=== PATIENT | female | born 1995 | race Caucasian/White ===

== ENCOUNTER 2016-07-21 18:47 | Outpatient (CLI) | payer MEDICAID ==
[2016-07-21 19:56] LABS: APPEARANCE,URINE CLEAR; BILIRUBIN,URINE NEGATIVE (NEGATIVE); GLUCOSE, URINE NEGATIVE (NEGATIVE); KETONES,URINE NEGATIVE (NEGATIVE); LEUKOCYTE ESTERASE,URINE NEGATIVE (NEGATIVE); NITRITE,URINE NEGATIVE (NEGATIVE); PROTEIN,URINE NEGATIVE (NEGATIVE); URINE SPECIFIC GRAVITY 1.006; UROBILINOGEN,URINE NEGATIVE mg/dL (<2.0)
[2016-07-21 19:56] LABS: AMNISURE (ROM) NEGATIVE (NEGATIVE)
[2016-07-21 20:09] LABS: URINE BARBITURATES SCREEN NEGATIVE; URINE METHADONE SCREEN NEGATIVE; URINE OPIATES LOW NEGATIVE; URINE PHENCYCLIDINE SCREEN NEGATIVE
--- NOTE | 2016-07-21 20:47 | Non Stress Test Report ---
Non Stress Test Datetime Report Generated by CPN: 07/21/2016 20:47 DEMOGRAPHIC EGA NST: 32.4 INDICATION Indication for Study: Ordered by Provider MONITORING Monitor Explained: Monitor Explained; Test Explained; Patient Verbalized Understanding Time on Monitor: 07/21/2016 19:19 Time off Monitor: 07/21/2016 20:16 NST Duration: 57 NST INTERVENTIONS NST Interventions: PO Hydration Physician Notified NST: Dr Neilsen BABY A: [id number] BABY A Movement : Present Contraction Frequency : 5-10 FHR Baseline : 125 Accelerations : Prolonged Decelerations : None Variability : Moderate 6-25bpm NST Review: Meets Criteria for Reactive NST NST Review and Verified By : ROBERT ROSA Results: Reactive NST REPORT Report Trigger: Send Report
== END 2016-07-21 20:28 | disposition home or self-care (01) ==
LOC: LC 18:47
PROVIDERS: ATTEND Specialist
DX: Z34.83 Encounter for supervision of other normal pregnancy, third trimester (principal); Z3A.32 32 weeks gestation of pregnancy
CPT/HCPCS: 59025; 80307; 81001; 84112

== ENCOUNTER 2016-07-30 23:50 | Outpatient (CLI) | payer MEDICAID ==
[2016-07-31 00:30] LABS: APPEARANCE,URINE CLEAR; BILIRUBIN,URINE NEGATIVE (NEGATIVE); GLUCOSE, URINE NEGATIVE (NEGATIVE); KETONES,URINE NEGATIVE (NEGATIVE); LEUKOCYTE ESTERASE,URINE NEGATIVE (NEGATIVE); NITRITE,URINE NEGATIVE (NEGATIVE); PROTEIN,URINE NEGATIVE (NEGATIVE); URINE SPECIFIC GRAVITY 1.004; UROBILINOGEN,URINE NEGATIVE mg/dL (<2.0)
[2016-07-31 00:35] LABS: AMNISURE (ROM) NEGATIVE (NEGATIVE)
--- NOTE | 2016-07-31 01:05 | Non Stress Test Report ---
Non Stress Test Datetime Report Generated by CPN: 07/31/2016 01:05 DEMOGRAPHIC Test Number: 1 EGA NST: 34.0 INDICATION Indication for Study: Ordered by Provider MONITORING Monitor Explained: Monitor Explained; Test Explained; Patient Verbalized Understanding Time on Monitor: 07/31/2016 00:11 Time off Monitor: 07/31/2016 00:53 NST Duration: 42 NST INTERVENTIONS NST Interventions: PO Hydration Physician Notified NST: Herron BABY A: [id number] BABY A Movement : Present Contraction Frequency : 1-6 FHR Baseline : 130 Accelerations : 15X15 Decelerations : None Variability : Moderate 6-25bpm NST Review: Meets Criteria for Reactive NST NST Review and Verified By : ROBERT Hewitt Results: Reactive NST REPORT Report Trigger: Send Report
[2016-07-31 01:19] LABS: URINE BARBITURATES SCREEN NEGATIVE; URINE METHADONE SCREEN NEGATIVE; URINE OPIATES LOW NEGATIVE; URINE PHENCYCLIDINE SCREEN NEGATIVE
== END 2016-07-31 01:04 | disposition home or self-care (01) ==
LOC: LC 23:50
PROVIDERS: ATTEND Obstetrics & Gynecology
PROC: 4A1HXCZ Monitoring of Products of Conception, Cardiac Rate, External Approach (ICD-10-PCS; principal; 2016-07-30)
DX: O47.03 False labor before 37 completed weeks of gestation, third trimester (principal); Z3A.34 34 weeks gestation of pregnancy
CPT/HCPCS: 59025; 80307; 81001; 84112

== ENCOUNTER 2016-08-16 19:23 | Outpatient (CLI) | payer MEDICAID ==
[2016-08-16 20:06] LABS: APPEARANCE,URINE SLIGHTLY-CLOUDY; BILIRUBIN,URINE NEGATIVE (NEGATIVE); GLUCOSE, URINE NEGATIVE (NEGATIVE); KETONES,URINE NEGATIVE (NEGATIVE); LEUKOCYTE ESTERASE,URINE MODERATE (NEGATIVE); NITRITE,URINE NEGATIVE (NEGATIVE); PROTEIN,URINE NEGATIVE (NEGATIVE); URINE SPECIFIC GRAVITY 1.006; UROBILINOGEN,URINE NEGATIVE mg/dL (<2.0)
[2016-08-16 20:37] LABS: URINE BARBITURATES SCREEN NEGATIVE; URINE METHADONE SCREEN NEGATIVE; URINE OPIATES LOW NEGATIVE; URINE PHENCYCLIDINE SCREEN NEGATIVE
[2016-08-16] MEDS ORDERED: ACETAMINOPHEN 325 MG TABLET PO ONE (21:32)
[2016-08-16] MEDS ORDERED: ACETAMINOPHEN 325 MG TABLET ONE (21:36)
--- NOTE | 2016-08-16 22:01 | Non Stress Test Report ---
Non Stress Test Datetime Report Generated by CPN: 08/16/2016 22:01 DEMOGRAPHIC EGA NST: 36.2 INDICATION Indication for Study: Ordered by Provider Indication for Study (NST) Other: labor check URINE RESULTS Urine Protein, NST: Negative Urine Ketones - NST: Negative Urine Glucose - NST: Negative Urine Blood - NST: Negative MONITORING Monitor Explained: Monitor Explained; Test Explained; Patient Verbalized Understanding Time on Monitor: 08/16/2016 19:51 Time off Monitor: 08/16/2016 20:20 NST Duration: 29 NST INTERVENTIONS NST Interventions: PO Hydration Physician Notified NST: Dr. Dsouza BABY A: [id number] BABY A Movement : Present FHR Baseline : 130 Accelerations : 15X15 Decelerations : None Variability : Moderate 6-25bpm NST Review: Meets Criteria for Reactive NST NST Review and Verified By : B. Ring RN NST Results: Reactive NST REPORT Report Trigger: Send Report
--- NOTE | 2016-08-17 10:48 | EKG REPORT ---
SEVERITY:- NORMAL ECG - SINUS RHYTHM : Confirmed by: Matthew Moon 17-Aug-2016 10:47:12
== END 2016-08-16 22:03 | disposition home or self-care (01) ==
LOC: LC 19:23
PROVIDERS: ATTEND Obstetrics & Gynecology
PROC: 4A1HXCZ Monitoring of Products of Conception, Cardiac Rate, External Approach (ICD-10-PCS; principal; 2016-08-16)
DX: O47.03 False labor before 37 completed weeks of gestation, third trimester (principal); Z3A.36 36 weeks gestation of pregnancy
CPT/HCPCS: 59025; 94760; 81001; 80307; 93005; 93010; J3490

== ENCOUNTER 2016-09-01 17:55 | Inpatient (IN) | payer MEDICAID ==
[2016-09-01] MEDS ORDERED: CEFAZOLIN 2 GM/D5W RTU 2 GM/50 ML RTUPB IV ONE (19:16)
[2016-09-01] MEDS ORDERED: CEFAZOLIN 2 GM/D5W RTU 50 ML IV PRN (19:23)
[2016-09-01] MEDS ORDERED: RINGERS SOLUTION,LACTATED 1,000 ML IV PRN (19:27)
[2016-09-01] MEDS ORDERED: ONDANSETRON HCL INJ/PF 4 MG/2 ML SDV IV SCH (19:30)
[2016-09-01] MEDS ORDERED: ZOLPIDEM TARTRATE 5 MG TABLET PO PRN (19:30)
[2016-09-01 19:43] LABS: URINE BARBITURATES SCREEN NEGATIVE; URINE METHADONE SCREEN NEGATIVE; URINE OPIATES LOW NEGATIVE; URINE PHENCYCLIDINE SCREEN NEGATIVE
[2016-09-01 19:45] LABS: APPEARANCE,URINE CLOUDY; BILIRUBIN,URINE NEGATIVE (NEGATIVE); GLUCOSE, URINE NEGATIVE (NEGATIVE); KETONES,URINE NEGATIVE (NEGATIVE); LEUKOCYTE ESTERASE,URINE LARGE (NEGATIVE); NITRITE,URINE NEGATIVE (NEGATIVE); PROTEIN,URINE 100 mg/dL (NEGATIVE); URINE SPECIFIC GRAVITY 1.009; UROBILINOGEN,URINE NEGATIVE mg/dL (<2.0)
[2016-09-01 19:52] LABS: ABSOLUTE EOSINOPHILS # (AUTO) 0.1 10^3/uL (0.0-0.6); ABSOLUTE LYMPHOCYTES (AUTO) 2.4 10^3/uL (0.5-4.7); ABSOLUTE NEUT (AUTO) 12.7 10^3/uL (1.7-8.2); BASOPHILS % (AUTO) 0.2 % (0-2); EOSINOPHILS % (AUTO) 0.8 % (0-6); HEMATOCRIT 33.4 % (36.0-47.0); HEMOGLOBIN 11.3 g/dL (12.0-15.5); HGB HCT DIFFERENCE 0.5; LYMPHOCYTES % (AUTO) 14.5 % (13-45); MEAN CORPUSCULAR HEMOGLOBIN 29.2 pg (27.0-33.4); MEAN CORPUSCULAR VOLUME 86 fl (80-97); MONOCYTES % (AUTO) 6.2 % (3-13); RED BLOOD COUNT 3.89 10^6/uL (3.72-5.28); RED CELL DISTRIBUTION WIDTH 13.6 % (11.5-14.0); SEGMENTED NEUTROPHILS % (AUTO) 78.3 % (42-78); WHITE BLOOD COUNT 16.2 10^3/uL (4.0-10.5)
[2016-09-01] MEDS: RINGERS SOLUTION,LACTATED 1,000 ML IV PRN (20:34)
[2016-09-01] MEDS ORDERED: OXYCODONE-ACETAMINOPHEN 5-325 MG TABLET PO ONE (20:45)
[2016-09-01] MEDS ORDERED: OXYCODONE-ACETAMINOPHEN 5-325 MG TABLET ONE (20:49)
--- NOTE | 2016-09-01 23:46 | Non Stress Test Report ---
Non Stress Test Datetime Report Generated by CPN: 09/01/2016 23:45 DEMOGRAPHIC EGA NST: 38.2 INDICATION Indication for Study: Ordered by Provider MONITORING Monitor Explained: Monitor Explained; Test Explained; Patient Verbalized Understanding Time on Monitor: 09/01/2016 18:20 Time off Monitor: 09/01/2016 23:42 NST Duration: 322 NST INTERVENTIONS NST Interventions: PO Hydration; IV Fluids; Reposition Patient Physician Notified NST: Sara BABY A: [id number] BABY A Movement : Present Contraction Frequency : 2-10 FHR Baseline : 145 Accelerations : 15X15 Decelerations : None Variability : Moderate 6-25bpm NST Review: Meets Criteria for Reactive NST NST Review and Verified By : ROBERT ROSA Results: Reactive NST REPORT Report Trigger: Send Report
[2016-09-02] MEDS ORDERED: CEFAZOLIN 1 GM/D5W RTU 1 GM/50 ML RTUPB IV SCH (03:30)
[2016-09-02] MEDS ORDERED: CEFAZOLIN 1 GM/D5W RTU 50 ML IV SCH (03:30)
[2016-09-02] MEDS ORDERED: OXYCODONE-ACETAMINOPHEN 5-325 MG TABLET PO ONE ×2 (05:30→06:45)
[2016-09-02] MEDS ORDERED: RINGERS SOLUTION,LACTATED 500 ML IV ONE ×2 (05:30→06:45)
[2016-09-02] MEDS ORDERED: OXYTOCIN/NORMAL SALINE 20 UNIT/1,000 ML RTUINJ ONE (06:57)
[2016-09-02] MEDS ORDERED: MISOPROSTOL 0.2 MG TABLET ONE (06:57)
[2016-09-02] MEDS ORDERED: LIDOCAINE 1% INJ-PF (10 MG/ML) 30 ML SDV ONE (06:57)
[2016-09-02] MEDS ORDERED: FENTANYL CITRATE INJ/PF 100 MCG/2 ML AMPUL ONE (07:16)
[2016-09-02] MEDS ORDERED: BENZOCAINE/MENTHOL AEROSOL SPRAY 56 ML TOP PRN (07:39)
[2016-09-02] MEDS ORDERED: OXYTOCIN/NORMAL SALINE 1,000 ML IV PRN (07:39)
[2016-09-02] MEDS ORDERED: ZOLPIDEM TARTRATE 5 MG TABLET PO PRN (07:39)
[2016-09-02] MEDS ORDERED: MEASLES,MUMPS&RUBELLA VACC/PF 0.5 ML VIAL SUBCUT PRN (07:39)
[2016-09-02] MEDS ORDERED: ACETAMINOPHEN WITH CODEINE #3 TABLET PO PRN (07:39)
[2016-09-02] MEDS ORDERED: DIPH/PERTUSS(ACELL)/TETANUS VAC/PF 0.5 ML SYR (>=10YO) IM PRN (07:39)
[2016-09-02] MEDS ORDERED: DIBUCAINE 1% OINTMENT 28 GM TP PRN (07:39)
--- NOTE | 2016-09-02 10:02 | Admission Physical ---
Datetime Report Generated by CPN: 09/02/2016 10:02 CURRENT ADMISSION Hx Assessment: The History has been Reviewed and is Current Chief Complaint: Uterine Contractions Admit Impression- Other: pyelonephritits Admit Plan: Observation/Evaluation ALLERGIES Medication Allergies: No Medication Allergies: No Known Allergies (09/01/2016) Medication Allergies: No Known Allergies (08/16/2016) Medication Allergies: No Known Allergies (07/21/2016) Latex: No Latex Allergies Food Allergies: none Environmental Allergies: none OBSTETRICAL HISTORY EDC: 09/13/2016 00:00 : 3 Para: 2 Term: 2 : 0 SAB: 0 IAB: 0 Ectopic: 0 Livin Cesareans: 0 VBACs: 0 Multiple Births: 0 Gestational Diabetes: No Rh Sensitization: No Incompetent Cervix: No HEATHER: No Infertility: No ART Treatment: No Uterine Anomaly: No IUGR: No Hx Previous C/S: No Macrosomia: No Hx Loss/Stillborn: No PIH: No Hx : No Placenta Previa/Abruption: No Depression/PP Depression: Yes PTL/PROM: No Post Hemorrhage: No Current Procedures: Ultrasound; NST Obstetrical History Comments: G1: 2012 G2: 2015 , GDM G3: current baby with hydronephrosis SEE RECORDS Alcohol: No Marijuana : No Cocaine: No Other Illicit Drugs: No Cigarettes: Former Smoker. [id number] MEDICAL HISTORY Diabetes: Yes Diabetes Type: Gestational Diabetes Blood Transfusion: No Pulmonary Disease (Asthma, TB): Yes Breast Disease: No Hypertension: No Doubler Helper Surgery: No Heart Disease: No Hosp/Surgery: Yes Autoimmune Disorder: No Anesthetic Complications: No Kidney Disease: Yes Abnormal Pap Smear: No Neuro/Epilepsy: No Psychiatric Disorders: No Other Medical Diseases: No Hepatitis/Liver Disease: No Significant Family History: No Varicosities/Phlebitis: No Trauma/Violence : No Thyroid Dysfunction: Yes Medical History Comments: Admissions for chronic kidney infections, history of major depression, asthma (rescue inhaler), pt states having goiter in the past (no INFECTIOUS HISTORY Gonorrhea: No Genital Herpes: No Chlamydia: No Tuberculosis: No Syphilis: No Hepatitis: No HIV/AIDS Exposure: No Rash or Viral Illness: No HPV: No PHYSICAL EXAM General: Normal HEENT: Normal Neurologic: Normal Thyroid: Normal Heart: Normal Lungs: Normal Breast: Abnormal Back: Normal Abdomen: Normal Genitourinary Exam: Normal Extremities: Normal DTRs: Normal Pelvic Type: Adequate Physical Exam Comments: right cva tenderness VAGINAL EXAM Dilatation: 3 Effacement: 50 Station: -2 FETUS A EGA: 38.2 Monitoring: External US FHR Category: Category I Admit Comment: admit with pyelonephritis-check urine cx. Start ancef. PLANS FOR LABOR AND DELIVERY Labor and Delivery: None Pain Management: Epidural Feeding Preference: Breast Benefit of Breast Feed Discussed: Yes Circumcision: No INFORMED CONSENT Signature: with User ID: [email or web address]
[2016-09-02] MEDS: FERROUS SULFATE 325 MG TABLET PO SCH ×2 (10:43→17:32)
[2016-09-02] MEDS: PRENATAL VITAMIN W-O CA NO5/FE FUMARATE/FA CAPSULE PO SCH (10:44)
[2016-09-02] MEDS: SENNOSIDES/DOCUSATE 8.6-50 MG 1 EACH TABLET PO SCH (10:44)
[2016-09-02] MEDS: DOCUSATE SODIUM 100 MG CAPSULE PO SCH ×2 (10:44→17:32)
[2016-09-02] MEDS ORDERED: SERTRALINE HCL 50 MG TABLET PO ONE (11:00)
[2016-09-02] MEDS: CEFAZOLIN 1 GM/D5W RTU 50 ML IV SCH ×3 (12:10→23:17)
[2016-09-02] MEDS: IBUPROFEN 800 MG TABLET PO SCH ×2 (14:12→21:16)
[2016-09-02] MEDS: ACETAMINOPHEN WITH CODEINE #3 TABLET PO PRN (15:05)
[2016-09-02] MEDS: RINGERS SOLUTION,LACTATED 1,000 ML IV PRN (17:32)
[2016-09-02] MEDS: ONDANSETRON 4 MG TAB.RAPDIS PO PRN (21:16)
[2016-09-03] MEDS: RINGERS SOLUTION,LACTATED 1,000 ML IV PRN (02:09)
[2016-09-03] MEDS: CEFAZOLIN 1 GM/D5W RTU 50 ML IV SCH (06:01)
[2016-09-03] MEDS: IBUPROFEN 800 MG TABLET PO SCH ×3 (06:01→21:16)
[2016-09-03 07:49] LABS: HEMATOCRIT 29.1 % (36.0-47.0); HEMOGLOBIN 9.7 g/dL (12.0-15.5); MEAN CORPUSCULAR HEMOGLOBIN 29.1 pg (27.0-33.4); MEAN CORPUSCULAR HGB CONC 33.4 g/dL (32.0-36.0); MEAN CORPUSCULAR VOLUME 87 fl (80-97); RED BLOOD COUNT 3.34 10^6/uL (3.72-5.28); RED CELL DISTRIBUTION WIDTH 13.8 % (11.5-14.0); WHITE BLOOD COUNT 12.7 10^3/uL (4.0-10.5)
[2016-09-03] MEDS: PRENATAL VITAMIN W-O CA NO5/FE FUMARATE/FA CAPSULE PO SCH (09:32)
[2016-09-03] MEDS: SERTRALINE HCL 50 MG TABLET PO SCH (09:32)
[2016-09-03] MEDS: DOCUSATE SODIUM 100 MG CAPSULE PO SCH ×2 (09:33→18:10)
[2016-09-03] MEDS: SENNOSIDES/DOCUSATE 8.6-50 MG 1 EACH TABLET PO SCH (09:33)
[2016-09-03] MEDS: FERROUS SULFATE 325 MG TABLET PO SCH ×2 (09:33→18:10)
--- NOTE | 2016-09-03 12:54 | PDOC PROGRESS REPORT ---
Subjective-OB Subjective: Post Delivery Day:1 21 year old. Denies any needs at this time, states pain is well controlled, lochia is stable, voiding without difficulty Physical Exam (OB) Vital Signs: Temp Pulse Resp BP Pulse Ox 98.1 F 70 14 103/63 99 09/03/16 08:28 09/03/16 08:28 09/03/16 08:28 09/03/16 08:28 09/03/16 08:28 Intake & Output 09/02/16 09/03/16 09/04/16 06:59 06:59 06:59 Intake Total 1500 500 Balance 1500 500 Weight 73 kg - Lochia Lochia Amount: Small 10-25 ml Lochia Color: Rubra/Red - Abdomen Description: Soft, Round Hernia Present: No Fundal Description: Firm, Midline Fundal Height: u/u - u/2 Objective-Diagnostic Laboratory: 09/03/16 07:37 09/03/16 07:37 WBC 12.7 H RBC 3.34 L Hgb 9.7 L Hct 29.1 L MCV 87 MCH 29.1 MCHC 33.4 RDW 13.8 Plt Count 202 09/01/16 18:00 Clean Catch Midstream Urine Culture - Final Escherichia Coli Assessment and Plan(PN) - Assessment and Plan (1) Vaginal delivery Is this a current diagnosis for this admission?: YesPlan: routine pp care (2) Pyelonephritis Is this a current diagnosis for this admission?: YesPlan: d/c home on macrobid macrobid while here (3) Acute blood loss anemia Is this a current diagnosis for this admission?: YesPlan: ferrous sulfate increase dietary iron
[2016-09-03] MEDS: ACETAMINOPHEN WITH CODEINE #3 TABLET PO PRN (15:52)
[2016-09-03] MEDS: NITROFURANTOIN MONOHYD/M-CRYST 100 MG CAPSULE PO SCH (18:10)
[2016-09-03] MEDS: ONDANSETRON 4 MG TAB.RAPDIS PO PRN (22:02)
[2016-09-04] MEDS: IBUPROFEN 800 MG TABLET PO SCH ×2 (05:04→14:00)
[2016-09-04 09:11] VITALS: BP 108/72
[2016-09-04] MEDS: FERROUS SULFATE 325 MG TABLET PO SCH (09:59)
[2016-09-04] MEDS: SENNOSIDES/DOCUSATE 8.6-50 MG 1 EACH TABLET PO SCH (09:59)
[2016-09-04] MEDS: PRENATAL VITAMIN W-O CA NO5/FE FUMARATE/FA CAPSULE PO SCH (09:59)
[2016-09-04] MEDS: SERTRALINE HCL 50 MG TABLET PO SCH (09:59)
[2016-09-04] MEDS: DOCUSATE SODIUM 100 MG CAPSULE PO SCH (09:59)
[2016-09-04] MEDS: NITROFURANTOIN MONOHYD/M-CRYST 100 MG CAPSULE PO SCH (09:59)
--- NOTE | 2016-09-04 12:56 | PDOC DISCHARGE SUMMARY ---
Final Diagnosis Discharge Date: 09/04/16 - Final Diagnosis (1) Vaginal delivery Is this a current diagnosis for this admission?: Yes (2) Acute blood loss anemia Is this a current diagnosis for this admission?: Yes (3) Pyelonephritis Is this a current diagnosis for this admission?: Yes Discharge Data - Discharge Medication Home Medications: Ondansetron HCl [Zofran 4 mg Tablet] 1 - 2 tab PO Q4H PRN 07/21/16 Vit/Iron Fumarate/FA [ Tablet] 1 each PO DAILY 07/21/16 Ranitidine HCl [Zantac 150 mg Tablet] 150 mg PO PRN PRN 07/21/16 Albuterol Sulfate [Proair HFA] 1 - 2 puff IH Q4 PRN 08/16/16 Sertraline HCl [Zoloft 50 mg Tablet] 50 mg PO DAILY 09/01/16 Docusate Sodium [Colace 100 mg Capsule] 100 mg PO BID #60 capsule 09/04/16 Ferrous Sulfate [Feosol 325 mg Tablet] 325 mg PO BID #60 tablet 09/04/16 Ibuprofen [Motrin 800 mg Tablet] 800 mg PO Q8HP PRN #60 tablet 09/04/16 Nitrofurantoin Monohyd/M-Cryst [Macrobid 100 mg Capsule] 100 mg PO BID #14 capsule 09/04/16 Reason(s) for Admission: Onset of Labor, Other - pyelonephritis Procedures: NST, Ultrasound, Management of Medical Complications - chronic UTI/kidney infections Intrapartum Procedure(s): Spontaneous Vaginal Delivery - Diagnosis Test Laboratory: Temp Pulse Resp BP Pulse Ox 98.3 F 54 L 14 108/72 100 09/04/16 08:31 09/04/16 08:31 09/04/16 08:31 09/04/16 08:31 09/04/16 08:31 09/01/16 09/01/16 09/03/16 18:00 19:25 07:37 RBC 3.89 3.34 L Hgb 11.3 L 9.7 L Hct 33.4 L 29.1 L Urine Opiates Screen NEGATIVE - Discharge information/Instructions Discharge Activity: Activity As Tolerated, Balance Activity w/Rest, No Lifting Over 10 Pounds, Pelvic Rest, Slowly Increase Activity, No tub bath Discharge Diet: Regular Disposition: HOME, SELF-CARE Follow up with: [facility] in: 2, 4 - appt., Weeks - urine culture
--- NOTE | 2016-09-04 13:59 | Delivery Summary ---
Del Sum A-C Datetime Report Generated by CPN: 09/04/2016 13:59 DELIVERY PERSONNEL DELIVERY PERSONNEL: [phone] DELIVERY PERSONNEL: [phone] DELIVERY PERSONNEL: [phone] DELIVERY PERSONNEL: [phone] DELIVERY PERSONNEL: [phone] Delivery Doctor:: Shaina Khan MD Labor and Delivery Nurse:: Lennie Gomez RNpatient assistant Nurse:: Laura Joiner RN Nursery Nurse:: ROBERT Tuttle/BILINGUAL RECEPTIONIST: Aileen Hazel CNA II MATERNAL INFORMATION Delivery Anesthesia: None Medications After Delivery: Pitocin Bolus-Please Comment Estimated Blood Loss (ml): 150 Maternal Complications: Precipitous Labor (<3hrs) Provider Comments: Pt progressed to over intact perineum of male with apgars 8 and 9. Head delivered OA. Shoulders and body delivered easily. IT INTERN/OP bulb suctioned. Cord clamped and cut. Placenta spont and intact. Mom and baby doing well. LABOR SUMMARY EDC: 09/13/2016 00:00 No. Babies in Womb: 1 Attempted: No Labor Anesthesia: IV Sedation LABOR INFORMATION Reason for Induction: Not Applicable Onset of Labor: 09/02/2016 05:00 Complete Dilatation: 09/02/2016 07:19 Oxytocin: N/A Group B Beta Strep: neg Antibiotics # of Doses: 2 Antibiotics Time of Last Dose: 0330 Name of Antibiotic Given: Ancef Steroids Given: None Reason Steroids Not Administered: Not Applicable MEMBRANES Membranes Rupture Method: Artificial Rupture of Membranes: 09/02/2016 07:02 Length of Rupture (hr): 0.33 Amniotic Fluid Color: Moderate Meconium Amniotic Fluid Amount: Moderate Amniotic Fluid Odor: None STAGES OF LABOR Stage 1 hr: 2 Stage 1 min: 19 Stage 2 hr: 0 Stage 2 min: 3 Stage 3 hr: 0 Stage 3 min: 9 Total Time in Labor hr: 2 Total Time in Labor min: 31 VAGINAL DELIVERY Episiotomy: None Laceration Extension: N/A Laceration Type: None Laceration Repair: Not Applicable Sponge Count Correct: N/A Sharps Count Correct: N/A CSECTION DELIVERY Primary Indication: N/A Secondary Indication: N/A CSection Incidence: N/A Labor: N/A Elective: N/A CSection Incision: N/A BABY A INFORMATION Delivery Date/Time: 09/02/2016 07:22 Method of Delivery: Vaginal Born in Route : No : N/A Forceps: N/A Vacuum Extraction: N/A Shoulder Dystocia : No PRESENTATION/POSITION BABY A Presentation: Cephalic Cephalic Presentation: Vertex Vertex Position: OA Breech Presentation: N/A PLACENTA INFORMATION BABY A Placenta Delivery Time : 09/02/2016 07:31 Placenta Method of Delivery: Spontaneous Placenta Status: Delivered SCORES BABY A Heart Rate 1 min: >100 bpm Resp Effort 1 min: Good Cry Reflex Irritability 1 min: Cough or Sneeze or Pulls Away Muscle Tone 1 min: Active Motion Color 1 min: Blue/Pale Resuscitation Effort 1 min: Tactile Stimulation SCORE 1 MIN: 8 Heart Rate 5 min: >100 bpm Resp Effort 5 min: Good Cry Reflex Irritability 5 min: Cough or Sneeze or Pulls Away Muscle Tone 5 min: Active Motion Color 5 min: Body Rochelle, Extremities Blue Resuscitation Effort 5 min: N/A SCORE 5 MIN: 9 Resuscitation Effort 10 min: N/A INFANT INFORMATION BABY A Gestational Age at Delivery: 38.3 Gestational Status: Early Term- 37- 38.6 Weeks Infant Outcome : Liveborn Condition : Stable Infant Sex: Male IDENTIFICATION BABY A Infant Verification Date/Time: 09/02/2016 07:22 ID Band Number: [id number] Mother's Name Verified: Yes Infant RN Verifying Infant: BL ROULUND, RN/ A GOMEZ, RN WEIGHT/LENGTH BABY A Infant Birthweight (gm): 3455 Infant Weight (lb): 7 Weight (oz): 10 Infant Length (in): 20.25 Infant Length (cm): 51.44 CORD INFORMATION BABY A No. Cord Vessels: 3 Nuchal Cord : N/A Cord Blood Taken: Yes-For Storage (Mom's Blood type +) Suction: Mouth; Nose ASSESSMENT BABY A Infant Complications: None Physical Findings at Delivery: Within Normal Limits Respirations: Appears Normal Skin to Skin: Yes Skin to Skin: Yes Skin to Skin Time (min): 60 Clothing Sorter/ALS Called : No Care By: Preston Gomez RN Transferred To: Remains with Mother SIGNATURES Signature: with User ID: [email or web address]
== END 2016-09-04 14:50 | disposition home or self-care (01) | DRG 774 ==
LOC: LC 17:55 → LR 19:23 → OBSVTOIN 19:23 → 2S 09-02 00:22
PROVIDERS: ADMIT Specialist; ATTEND Specialist
PROC: 4A1HXCZ Monitoring of Products of Conception, Cardiac Rate, External Approach (ICD-10-PCS; 2016-09-01)
PROC: 10E0XZZ Delivery of Products of Conception, External Approach (ICD-10-PCS; principal; 2016-09-02)
PROC: 10907ZC Drainage of Amniotic Fluid, Therapeutic from Products of Conception, Via Natural or Artificial Opening (ICD-10-PCS; 2016-09-02)
DX: O75.3 Other infection during labor (principal); D62 Acute posthemorrhagic anemia; N12 Tubulo-interstitial nephritis, not specified as acute or chronic; O99.02 Anemia complicating childbirth; O24.429 Gestational diabetes mellitus in childbirth, unspecified control; O99.513 Diseases of the respiratory system complicating pregnancy, third trimester; J45.909 Unspecified asthma, uncomplicated; O99.344 Other mental disorders complicating childbirth; F32.9 Major depressive disorder, single episode, unspecified; O62.3 Precipitate labor; O77.0 Labor and delivery complicated by meconium in amniotic fluid; Z87.891 Personal history of nicotine dependence; Z3A.38 38 weeks gestation of pregnancy; Z37.0 Single live birth
CPT/HCPCS: 36415; 59025; 80307; 81001; 85025; 85027; 86592; 86850; 86900; 86901; 87086; 87088; 87186; 88307; J0690; J2590; J3010; J3490; J7120; J8499; S0119

== ENCOUNTER 2016-11-11 16:12 | Emergency (ER) | payer MEDICAID ==
--- NOTE | 2016-11-11 17:09 | ER Document Report ---
ED Medical Screen (RME) - General Chief Complaint: Abdominal Pain Stated Complaint: ABDOMINAL PAIN Time Seen by Provider: 11/11/16 17:07 Notes: Patient has approximately 3 days of bilateral lower quadrant abdominal pain. No vaginal bleeding or discharge. No problems with urination or bowel movements. Patient states there is a chance that she could be . Patient states she has had nausea but no vomiting. She has had decreased appetite. TRAVEL OUTSIDE OF THE [place] IN LAST 30 DAYS: No - Related Data Allergies/Adverse Reactions: No Known Allergies Allergy (Verified 11/11/16 16:33) Past Medical History Pulmonary Medical History: Reports: Hx Asthma, Hx Bronchitis Renal/ Medical History: Denies: Hx Peritoneal Dialysis Psychiatric Medical History: Reports: Hx Depression Physical Exam - Vital signs Vitals: Temp Pulse Resp BP Pulse Ox 98.4 F 88 16 112/54 L 98 11/11/16 16:32 11/11/16 16:32 11/11/16 16:32 11/11/16 16:32 11/11/16 16:32 Course - Vital Signs Vital signs: Temp Pulse Resp BP Pulse Ox 98.4 F 88 16 112/54 L 98 11/11/16 16:32 11/11/16 16:32 11/11/16 16:32 11/11/16 16:32 11/11/16 16:32
[2016-11-11 17:29] LABS: ABSOLUTE BASOPHILS # (AUTO) 0.1 10^3/uL (0.0-0.2); ABSOLUTE EOSINOPHILS # (AUTO) 0.2 10^3/uL (0.0-0.6); ABSOLUTE LYMPHOCYTES (AUTO) 2.5 10^3/uL (0.5-4.7); ABSOLUTE MONOCYTES (AUTO) 0.6 10^3/uL (0.1-1.4); ABSOLUTE NEUT (AUTO) 4.5 10^3/uL (1.7-8.2); BASOPHILS % (AUTO) 0.9 % (0-2); EOSINOPHILS % (AUTO) 2.1 % (0-6); HEMATOCRIT 37.9 % (36.0-47.0); HEMOGLOBIN 13.3 g/dL (12.0-15.5); MEAN CORPUSCULAR HGB CONC 35.2 g/dL (32.0-36.0); MEAN CORPUSCULAR VOLUME 85 fl (80-97); MONOCYTES % (AUTO) 7.3 % (3-13); RED BLOOD COUNT 4.45 10^6/uL (3.72-5.28); RED CELL DISTRIBUTION WIDTH 13.6 % (11.5-14.0); SEGMENTED NEUTROPHILS % (AUTO) 57.7 % (42-78); WHITE BLOOD COUNT 7.9 10^3/uL (4.0-10.5)
[2016-11-11 17:40] LABS: APPEARANCE,URINE SLIGHTLY-CLOUDY; BILIRUBIN,URINE NEGATIVE (NEGATIVE); GLUCOSE, URINE NEGATIVE (NEGATIVE); KETONES,URINE NEGATIVE (NEGATIVE); LEUKOCYTE ESTERASE,URINE NEGATIVE (NEGATIVE); NITRITE,URINE NEGATIVE (NEGATIVE); PROTEIN,URINE NEGATIVE (NEGATIVE); URINE SPECIFIC GRAVITY 1.011; UROBILINOGEN,URINE NEGATIVE mg/dL (<2.0)
--- NOTE | 2016-11-11 17:53 | ER Document Report ---
HPI - HPI Onset: Last week Onset/Duration: Gradual, Waxing and waning Quality of pain: Cramping, Dull Pain Level: 3 Associated Symptoms: None Exacerbated by: Denies Relieved by: Denies Similar symptoms previously: Yes Recently seen / treated by doctor: No - ROS Systems Reviewed and Negative: Yes All other systems reviewed and negative - CONSTITUTIONAL Constitutional: DENIES: Fever, Chills - URINARY Notes: Pain around ovaries - REPRODUCTIVE Reproductive: REPORTS: : - DERM Skin Color: Normal Past Medical History - General Information source: Patient, [facility] Records - Social History Smoking Status: Current Every Day Smoker Frequency of alcohol use: Rare Family History: Reviewed & Not Pertinent Pulmonary Medical History: Reports: Hx Asthma, Hx Bronchitis Renal/ Medical History: Denies: Hx Peritoneal Dialysis Psychiatric Medical History: Reports: Hx Depression Vertical Provider Document - CONSTITUTIONAL Agree With Documented VS: Yes Exam Limitations: No Limitations General Appearance: WD/WN, No Apparent Distress - INFECTION CONTROL TRAVEL OUTSIDE OF THE [place] IN LAST 30 DAYS: No - HEENT HEENT: Atraumatic, Normocephalic - NECK Neck: Normal Inspection, Supple - RESPIRATORY Respiratory: Breath Sounds Normal O2 Sat by Pulse Oximetry: 98 - CARDIOVASCULAR Cardiovascular: Regular Rate, Regular Rhythm - GI/ABDOMEN Gastrointestinal: Abdomen Soft, Abdomen Non-Tender, Normal Bowel Sounds - BACK Back: Normal Inspection - MUSCULOSKELETAL/EXTREMETIES Musculoskeletal/Extremeties: MAEW, FROM, Non-Tender - NEURO Level of Consciousness: Awake, Alert, Appropriate Motor/Sensory: No Motor Deficit, No Sensory Deficit - DERM Integumentary: Warm, Dry Course - Re-evaluation Re-evalutation: 11/11/16 17:52 Patient has 3-4 days of pain around her ovaries. She is approximately 2 months . 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 She has not taken any medication at home. No vaginal bleeding. No vaginal discharge. ED workup is unremarkable. She has Zofran at home for nausea. Recommend use of [id number] pain medications and follow-up with her OB doctor. - Vital Signs Vital signs: Temp Pulse Resp BP Pulse Ox 98.4 F 88 16 112/54 L 98 11/11/16 16:32 11/11/16 16:32 11/11/16 16:32 11/11/16 16:32 11/11/16 16:32 - Laboratory Result Diagrams: 11/11/16 17:22 11/11/16 17:22 Discharge - Discharge Clinical Impression: Pelvic pain Disposition: HOME, SELF-CARE Instructions: Pelvic Pain ([facility]) Additional Instructions: Follow-up with your WORKERS COMPENSATION ADJUSTER doctor. You may use [id number] medications such as acetaminophen, ibuprofen, or Naprosyn for pain as needed. Return to emergency room if worse or for any other problems. Referrals: MICHELL MURRAY MD [Primary Care Provider] - Follow up as needed
[2016-11-11 18:02] LABS: ALANINE AMINOTRANSFERASE 24 U/L (9-52); ALBUMIN 4.1 g/dL (3.5-5.0); ALKALINE PHOSPHATASE 55 U/L (38-126); ANION GAP 10 (5-19); ASPARTATE AMINO TRANSFERASE 16 U/L (14-36); BILIRUBIN,DIRECT 0.3 mg/dL (0.0-0.4); BILIRUBIN,TOTAL 0.5 mg/dL (0.2-1.3); BLOOD UREA NITROGEN 10 mg/dL (7-20); CALCIUM 9.6 mg/dL (8.4-10.2); CARBON DIOXIDE 25 mmol/L (22-30); CHLORIDE 104 mmol/L (98-107); CREATININE RESULT 0.68 mg/dL (0.52-1.25); GLUCOSE 97 mg/dL (75-110); POTASSIUM 4.2 mmol/L (3.6-5.0); TOTAL PROTEIN 6.8 g/dL (6.3-8.2)
[2016-11-11 18:20] VITALS: BP 98/53
== END 2016-11-11 18:20 | disposition home or self-care (01) ==
LOC: ER 16:12
DX: O26.899 Other specified pregnancy related conditions, unspecified trimester (principal); R10.2 Pelvic and perineal pain; O99.330 Smoking (tobacco) complicating pregnancy, unspecified trimester; O99.519 Diseases of the respiratory system complicating pregnancy, unspecified trimester; J45.909 Unspecified asthma, uncomplicated; Z3A.00 Weeks of gestation of pregnancy not specified
CPT/HCPCS: 36415; 80053; 81001; 81025; 85025; 99284

== ENCOUNTER 2017-01-07 11:45 | Emergency (ER) | payer MEDICAID ==
[2017-01-07 14:50] LABS: ABSOLUTE BASOPHILS # (AUTO) 0.1 10^3/uL (0.0-0.2); ABSOLUTE EOSINOPHILS # (AUTO) 0.3 10^3/uL (0.0-0.6); ABSOLUTE LYMPHOCYTES (AUTO) 3.7 10^3/uL (0.5-4.7); ABSOLUTE MONOCYTES (AUTO) 0.6 10^3/uL (0.1-1.4); ABSOLUTE NEUT (AUTO) 5.2 10^3/uL (1.7-8.2); BASOPHILS % (AUTO) 1.3 % (0-2); EOSINOPHILS % (AUTO) 3.4 % (0-6); HEMATOCRIT 34.6 % (36.0-47.0); HEMOGLOBIN 12.1 g/dL (12.0-15.5); HGB HCT DIFFERENCE 1.7; MEAN CORPUSCULAR HEMOGLOBIN 29.3 pg (27.0-33.4); MEAN CORPUSCULAR HGB CONC 35.1 g/dL (32.0-36.0); MEAN CORPUSCULAR VOLUME 83 fl (80-97); MONOCYTES % (AUTO) 5.9 % (3-13); RED BLOOD COUNT 4.15 10^6/uL (3.72-5.28); RED CELL DISTRIBUTION WIDTH 13.5 % (11.5-14.0); SEGMENTED NEUTROPHILS % (AUTO) 52.4 % (42-78); WHITE BLOOD COUNT 9.9 10^3/uL (4.0-10.5)
[2017-01-07 14:53] LABS: APPEARANCE,URINE CLEAR; BILIRUBIN,URINE NEGATIVE (NEGATIVE); GLUCOSE, URINE NEGATIVE (NEGATIVE); KETONES,URINE NEGATIVE (NEGATIVE); LEUKOCYTE ESTERASE,URINE SMALL (NEGATIVE); NITRITE,URINE NEGATIVE (NEGATIVE); PROTEIN,URINE NEGATIVE (NEGATIVE); URINE SPECIFIC GRAVITY 1.004; UROBILINOGEN,URINE NEGATIVE mg/dL (<2.0)
[2017-01-07 15:09] LABS: ALANINE AMINOTRANSFERASE 33 U/L (9-52); ALBUMIN 3.9 g/dL (3.5-5.0); ALKALINE PHOSPHATASE 46 U/L (38-126); ANION GAP 10 (5-19); ASPARTATE AMINO TRANSFERASE 13 U/L (14-36); BILIRUBIN,DIRECT 0.2 mg/dL (0.0-0.4); BILIRUBIN,TOTAL 0.2 mg/dL (0.2-1.3); BLOOD UREA NITROGEN 5 mg/dL (7-20); CALCIUM 9.6 mg/dL (8.4-10.2); CARBON DIOXIDE 26 mmol/L (22-30); CHLORIDE 105 mmol/L (98-107); CREATININE RESULT 0.62 mg/dL (0.52-1.25); GLUCOSE 94 mg/dL (75-110); POTASSIUM 4.1 mmol/L (3.6-5.0); SODIUM 140.9 mmol/L (137-145); TOTAL PROTEIN 6.5 g/dL (6.3-8.2)
--- NOTE | 2017-01-07 15:33 | ER Document Report ---
ED General - General Chief Complaint: Abdominal Pain Stated Complaint: STOMACH PAIN Time Seen by Provider: 01/07/17 14:11 Mode of Arrival: Ambulatory Information source: Patient Notes: 21-year-old female presents with complaints of left lower quadrant abdominal pain. Patient believes she is has not taken multiple home tests that are negative but states they are always negative. Patient has been 3 times prior TRAVEL OUTSIDE OF THE [place] IN LAST 30 DAYS: No - HPI Onset: Just prior to arrival Onset/Duration: Sudden Severity: Mild Pain Level: 1 Associated symptoms: Other Exacerbated by: Denies Relieved by: Denies Similar symptoms previously: Yes Recently seen / treated by doctor: Yes - Related Data Allergies/Adverse Reactions: No Known Allergies Allergy (Verified 01/07/17 13:02) Past Medical History - Social History Smoking Status: Current Every Day Smoker Cigarette use (# per day): Yes Chew tobacco use (# tins/day): No Smoking Education Provided: No Frequency of alcohol use: None Drug Abuse: None Family History: Reviewed & Not Pertinent Pulmonary Medical History: Reports: Hx Asthma, Hx Bronchitis Renal/ Medical History: Denies: Hx Peritoneal Dialysis Psychiatric Medical History: Reports: Hx Depression - Immunizations Hx Diphtheria, Pertussis, Tetanus Vaccination: No Review of Systems - Review of Systems Notes: REVIEW OF SYSTEMS: CONSTITUTIONAL : Denies fever, chills, or sweats. Denies recent illness. EENT: Denies eye, ear, throat, or mouth pain or symptoms. Denies nasal or sinus congestion or discharge. Denies throat, tongue, or mouth swelling or difficulty swallowing. CARDIOVASCULAR: Admits to intermittent palpitations RESPIRATORY: Denies cough, cold, or chest congestion. Denies shortness of breath, difficulty breathing, or wheezing. GASTROINTESTINAL: Admits to left lower quadrant pain GENITOURINARY: Denies difficulty urinating, painful urination, burning, frequency, blood in urine, or discharge. FEMALE GENITOURINARY: Denies vaginal bleeding, heavy or abnormal periods, irregular periods. Denies vaginal discharge or odor. MUSCULOSKELETAL: Denies back or neck pain or stiffness. Denies joint pain or swelling. SKIN: Denies rash, lesions or sores. HEMATOLOGIC : Denies easy bruising or bleeding. LYMPHATIC: Denies swollen, enlarged glands. NEUROLOGICAL: Denies confusion or altered mental status. Denies passing out or loss of consciousness. Denies dizziness or lightheadedness. Denies headache. Denies weakness or paralysis or loss of use of either side. Denies problems with gait or speech. Denies sensory loss, numbness, or tingling. Denies seizures. PSYCHIATRIC: Denies anxiety or stress. Denies depression, suicidal ideation, or homicidal ideation. ALL OTHER SYSTEMS REVIEWED AND NEGATIVE. PHYSICAL EXAMINATION: GENERAL: Well-appearing, well-nourished and in no acute distress. HEAD: Atraumatic, normocephalic. EYES: Pupils equal round and reactive to light, extraocular movements intact, conjunctiva are normal. ENT: Nares patent, oropharynx clear without exudates. Moist mucous membranes. NECK: Normal range of motion, supple without lymphadenopathy LUNGS: Breath sounds clear to auscultation bilaterally and equal. No wheezes rales or rhonchi. HEART: Regular rate and rhythm without murmurs ABDOMEN: Soft, nontender, nondistended abdomen. No guarding, no rebound. No masses appreciated. Female : deferred Musculoskeletal: Normal range of motion, no pitting or edema. No cyanosis. NEUROLOGICAL: Cranial nerves grossly intact. Normal speech, normal gait. Normal sensory, motor exams PSYCH: Normal mood, normal affect. SKIN: Warm, Dry, normal turgor, no rashes or lesions noted. Dictation was performed using [employer] voice recognition software Physical Exam - Vital signs Vitals: Temp Pulse BP Pulse Ox 98.4 F 97 113/54 L 98 01/07/17 12:11 01/07/17 12:11 01/07/17 12:11 01/07/17 12:11 Course - Re-evaluation Re-evalutation: 01/07/17 15:33 Physical examination was quite benign, lab work imaging is pending at this time 01/07/17 16:10 Ultrasound was consistent with a 2.8 cm simple ovarian cyst on the left, but otherwise was negative. Patient looks well will be discharged home states she has no questions or any other concerns - Vital Signs Vital signs: Temp Pulse Resp BP Pulse Ox 98.4 F 97 113/54 L 98 01/07/17 12:11 01/07/17 12:11 01/07/17 12:11 01/07/17 12:11 - Laboratory Result Diagrams: 01/07/17 14:40 01/07/17 14:40 Laboratory results interpreted by me: 01/07/17 01/07/17 01/07/17 14:00 14:40 14:40 Hct 34.6 L BUN 5 L AST 13 L Ur Leukocyte Esterase SMALL H - Diagnostic Test Radiology reviewed: Image reviewed, Reports reviewed Discharge - Discharge Clinical Impression: Abdominal pain, left lower quadrant Ovarian cyst Qualifiers: Laterality: left Qualified Code(s): N83.202 - Unspecified ovarian cyst, left side Condition: Stable Disposition: HOME, SELF-CARE Instructions: Abdominal Pain ([facility]) Referrals: [facility] [Provider Group] - Follow up tomorrow
--- NOTE | 2017-01-07 15:46 | RADIOLOGY REPORT (SQ) ---
EXAM DESCRIPTION: U/S NON OB PEL TV W/DOPPLER COMPLETED DATE/TIME: 01/07/2017 3:29 pm REASON FOR STUDY: LLQ pain COMPARISON: None. TECHNIQUE: Dynamic and static grayscale images acquired of the pelvis via transvaginal approach and recorded on PACS. Additional selected color Doppler and spectral images recorded. LIMITATIONS: None. FINDINGS: UTERUS: Contour normal. No mass. Uterus is 9.6 x 6.4 x 5.1 cm in size ENDOMETRIAL STRIPE: No focal or generalized thickening. No masses. 11 mm in thickness CERVIX: No nabothian cysts. Cervix 3.2 cm in length. RIGHT OVARY: No abnormal masses. Right ovary 2.6 x 2.9 x 1.7 cm in size RIGHT OVARY DOPPLER: Normal arterial vascular flow without evidence for torsion. LEFT OVARY: No abnormal masses. 2.8 cm simple cyst. Overall, the left ovary is 5 x 3 x 2.2 cm in siz e LEFT OVARY DOPPLER: Normal arterial vascular flow without evidence for torsion. FREE FLUID: None noted. OTHER: No other significant finding. IMPRESSION: 2.8 CM SIMPLE CYST LEFT OVARY. OTHERWISE, NORMAL TRANSVAGINAL PELVIC ULTRASOUND. TECHNICAL DOCUMENTATION: JOB ID: [id number] [employer]- All Rights Reserved
--- NOTE | 2017-01-07 16:33 | EKG REPORT ---
SEVERITY:- BORDERLINE ECG - SINUS ARRHYTHMIA, RATE 54-82 BORDERLINE T ABNORMALITIES, ANTERIOR LEADS : Confirmed by: Matthew Moon 07-Jan-2017 16:32:09
[2017-01-07 16:47] VITALS: BP 95/50
== END 2017-01-07 16:52 | disposition home or self-care (01) ==
LOC: ER 11:45
DX: N83.292 Other ovarian cyst, left side (principal); R10.32 Left lower quadrant pain; R00.2 Palpitations; J45.909 Unspecified asthma, uncomplicated; F17.210 Nicotine dependence, cigarettes, uncomplicated
CPT/HCPCS: 36415; 76830; 80053; 81001; 84703; 85025; 93005; 93010; 93976; 99284

== ENCOUNTER 2017-02-10 03:09 | Emergency (ER) | payer MEDICAID ==
--- NOTE | 2017-02-10 03:54 | ER Document Report ---
ED General - General Mode of Arrival: Ambulatory Information source: Patient TRAVEL OUTSIDE OF THE [place] IN LAST 30 DAYS: No <ABENA SPRAGUE - Last Filed: 02/10/17 05:01> <LISSETH MARQUEZ - Last Filed: 02/10/17 05:37> - General Chief Complaint: Psych Problem Stated Complaint: PSYCH EVALUATION Time Seen by Provider: 02/10/17 03:44 Notes: Patient is a 21 year old female with a history of anxiety and depression who presents to the emergency department seeking in-patient treatment for depression and feeling hopeless. Patient states that she has been "feeling out wack lately". She states she lost her Cymbalta around a week ago and has made multiple appointments to receive more but has not been able to bring herself to get out the house to go. Patients associated symptoms include trouble eating and sleeping. Patient denies any physical pain, suicidal ideation or suicidal plan. Patient has a history of a suicide attempt at 15 due to the of her mother and sought inpatient care at that time. (ABEAN SPRAGUE) - Related Data Allergies/Adverse Reactions: No Known Allergies Allergy (Verified 01/07/17 13:02) Past Medical History - General Information source: Patient - Social History Smoking Status: Current Every Day Smoker Cigarette use (# per day): Yes - 1 pack a day Chew tobacco use (# tins/day): No Smoking Education Provided: No Frequency of alcohol use: Occasional Drug Abuse: None Family History: Reviewed & Not Pertinent Patient has suicidal ideation: Yes Patient has homicidal ideation: No Pulmonary Medical History: Reports: Hx Asthma, Hx Bronchitis Psychiatric Medical History: Reports: Hx Depression - Immunizations Hx Diphtheria, Pertussis, Tetanus Vaccination: No <ABENA SPRAGUE - Last Filed: 02/10/17 05:01> Review of Systems - Review of Systems Constitutional: No symptoms reported EENT: No symptoms reported Cardiovascular: No symptoms reported Respiratory: No symptoms reported Gastrointestinal: See HPI, Poor appetite Genitourinary: No symptoms reported Female Genitourinary: No symptoms reported Musculoskeletal: No symptoms reported Skin: No symptoms reported Hematologic/Lymphatic: No symptoms reported Neurological/Psychological: See HPI, Anxiety, Other - trouble sleeping. denies : Suicidal ideation -: Yes All other systems reviewed and negative <ABENA SPRAGUE - Last Filed: 02/10/17 05:01> Physical Exam <ABENA SPRAGUE - Last Filed: 02/10/17 05:01> <LISSETH MARQUEZ - Last Filed: 02/10/17 05:37> - Vital signs Vitals: Temp Pulse Resp BP Pulse Ox 97.8 F 119 H 18 116/66 95 02/10/17 03:12 02/10/17 03:12 02/10/17 03:12 02/10/17 03:12 02/10/17 03:12 - Notes Notes: GENERAL: Alert, interacts well. No acute distress. HEAD: Normocephalic, atraumatic. EYES: Pupils equal, round, and reactive to light. Extraocular movements intact. ENT: Oral mucosa moist, tongue midline. NECK: Full range of motion. Supple. Trachea midline. LUNGS: No respiratory distress. HEART: Mild tachycardia. No murmurs, gallops, or rubs. EXTREMITIES: Moves all 4 extremities spontaneously. NEUROLOGICAL: Alert and oriented x3. Normal speech. PSYCH: Normal affect, normal mood. SKIN: Warm, dry, normal turgor. No rashes or lesions noted. (ABENA SPRAGUE) Course - Laboratory Result Diagrams: 02/10/17 04:30 02/10/17 04:30 <ABENA SPRAGUE - Last Filed: 02/10/17 05:01> - Laboratory Result Diagrams: 02/10/17 04:30 02/10/17 04:30 <LISSETH MARQUEZ - Last Filed: 02/10/17 05:37> - Re-evaluation Re-evalutation: 02/10/17 05:35 CBC unremarkable, chemistries unremarkable, test negative, urinalysis unremarkable, urine drug screen shows benzodiazepines consistent with her prescription of Xanax, salicylates and acetaminophen are undetectable, alcohol level is 17. Patient presents voluntarily to the emergency department seeking help. Patient has had consult placed for mental health team, they will evaluate her in the morning. Patient is stable at this time for transfer or discharge. (LISSETH MARQUEZ) - Vital Signs Vital signs: Temp Pulse Resp BP Pulse Ox 97.8 F 119 H 18 116/66 95 02/10/17 03:12 02/10/17 03:12 02/10/17 03:12 02/10/17 03:12 02/10/17 03:12 - Laboratory Laboratory results interpreted by me: 02/10/17 02/10/17 04:30 04:30 Lymphocytes % 47.9 H Calcium 10.3 H Salicylates < 1.0 L Acetaminophen < 10 L Discharge <ABENA SPRAGUE - Last Filed: 02/10/17 05:01> <LISSETH MARQUEZ - Last Filed: 02/10/17 05:37> - Discharge Clinical Impression: Depression Qualifiers: Depression Type: major depressive disorder Major depression recurrence: recurrent Active/Remission status: currently active Major depression episode severity: moderate Qualified Code(s): F33.1 - Major depressive disorder, recurrent, moderate Condition: Stable Disposition: PSYCH HOSP/UNIT Referrals: POLA NORTH DO [Primary Care Provider] - Follow up as needed Scribe Attestation: 02/10/17 05:36 I personally performed the services described in the documentation, reviewed and edited the documentation which was dictated to the scribe in my presence, and it accurately records my words and actions. (LISSETH MARQUEZ) Scribe Documentation - Scribe Written by Scribe:: German Dotson, <ABENA SPRAGUE - Last Filed: 02/10/17 05:01>
[2017-02-10] MEDS ORDERED: NICOTINE 7 MG/24 HR PATCH.TD24 TD PRN (04:49)
[2017-02-10 04:54] LABS: ABSOLUTE BASOPHILS # (AUTO) 0.1 10^3/uL (0.0-0.2); ABSOLUTE EOSINOPHILS # (AUTO) 0.3 10^3/uL (0.0-0.6); ABSOLUTE LYMPHOCYTES (AUTO) 4.3 10^3/uL (0.5-4.7); ABSOLUTE MONOCYTES (AUTO) 0.4 10^3/uL (0.1-1.4); ABSOLUTE NEUT (AUTO) 3.9 10^3/uL (1.7-8.2); BASOPHILS % (AUTO) 1.4 % (0-2); EOSINOPHILS % (AUTO) 2.9 % (0-6); HEMATOCRIT 39.9 % (36.0-47.0); HGB HCT DIFFERENCE 2.1; LYMPHOCYTES % (AUTO) 47.9 % (13-45); MEAN CORPUSCULAR HEMOGLOBIN 29.4 pg (27.0-33.4); MEAN CORPUSCULAR VOLUME 84 fl (80-97); MONOCYTES % (AUTO) 4.4 % (3-13); RED BLOOD COUNT 4.76 10^6/uL (3.72-5.28); RED CELL DISTRIBUTION WIDTH 13.8 % (11.5-14.0); SEGMENTED NEUTROPHILS % (AUTO) 43.4 % (42-78); WHITE BLOOD COUNT 9.1 10^3/uL (4.0-10.5)
[2017-02-10 05:01] LABS: ALANINE AMINOTRANSFERASE 30 U/L (9-52); ALBUMIN 4.6 g/dL (3.5-5.0); ALCOHOL 17 mg/dL (NONE DETECTED); ALKALINE PHOSPHATASE 56 U/L (38-126); ANION GAP 14 (5-19); ASPARTATE AMINO TRANSFERASE 15 U/L (14-36); BILIRUBIN,DIRECT 0.3 mg/dL (0.0-0.4); BILIRUBIN,TOTAL 0.3 mg/dL (0.2-1.3); BLOOD UREA NITROGEN 8 mg/dL (7-20); CALCIUM 10.3 mg/dL (8.4-10.2); CARBON DIOXIDE 28 mmol/L (22-30); CHLORIDE 103 mmol/L (98-107); CREATININE RESULT 0.66 mg/dL (0.52-1.25); GLUCOSE 108 mg/dL (75-110); POTASSIUM 3.8 mmol/L (3.6-5.0); TOTAL PROTEIN 7.6 g/dL (6.3-8.2)
[2017-02-10 05:10] LABS: APPEARANCE,URINE CLEAR; BILIRUBIN,URINE NEGATIVE (NEGATIVE); GLUCOSE, URINE NEGATIVE (NEGATIVE); KETONES,URINE NEGATIVE (NEGATIVE); LEUKOCYTE ESTERASE,URINE NEGATIVE (NEGATIVE); NITRITE,URINE NEGATIVE (NEGATIVE); PROTEIN,URINE NEGATIVE (NEGATIVE); URINE SPECIFIC GRAVITY 1.011; UROBILINOGEN,URINE NEGATIVE mg/dL (<2.0)
[2017-02-10 05:22] LABS: URINE BARBITURATES SCREEN NEGATIVE; URINE METHADONE SCREEN NEGATIVE; URINE OPIATES LOW NEGATIVE; URINE PHENCYCLIDINE SCREEN NEGATIVE
--- NOTE | 2017-02-10 06:06 | EKG REPORT ---
SEVERITY:- NORMAL ECG - SINUS RHYTHM : Confirmed by: Haydee Fields MD 10-Feb-2017 06:05:17
[2017-02-10] MEDS ORDERED: CITALOPRAM HYDROBROMIDE 20 MG TABLET PO SCH (10:00)
[2017-02-10] MEDS: BUSPIRONE HCL 10 MG TABLET PO SCH ×2 (10:52→18:20)
--- NOTE | 2017-02-10 12:06 | PSYCHOLOGICAL NOTE ---
Psych Note - Psych Note Psych Note: Patient is a 21 year old female who presented to the ED special effects person for increased depression, hopelessness, and passive suicidal ideation. Patient stated she brought herself to the ED because she felt like she "wanted to give up but has 3 children to think about so no serious SI thoughts." She stated "when she is in a depressed state of mind she feels like she just wants to be wiped from existence, remembers the consequences and her children, so does not take action." She identified she is prescribed a low dose of Cymbalta and Xanax 0.5MG TID. She stated she has been on these medications on and off for 4 years due to 3 pregnancies. She stated she lost her Cymbalta about a week ago so has been without it but is still taking the Xanax. She stated her outpatient providers are at [facility] and [facility]. She stated her last medication management appointment was well over a month ago and she is due for another. She identified she is supposed to be set up with therapy but has not been able to get to her first appointment due to lack of energy and motivation, as well as driving back and forth to [facility] supportive of her father get off of Fentanyl patches he has been prescribed for the past 20 years. She stated she wants to get back on track with medications. She noted having been on lots of medications in the past. She specifically mentioned she had been on Vyvanse which was switched to Adderall when she was younger. She stated Paxil made her emotions like a "roller coaster" and seem to have same effect on parents. She noted both parents did well with Cymbalta which is why she was put on it as well. She admitted to a previous hospitalization when she was 15 years old after attempting suicide due to her mother having 3 heart attacks and family not letting patient see her mother. She was subsequently hospitalized at [facility] (only hospitalization) where she thinks she was prescribed Zyprexa or Risperdal which she said was effective. She identified current stress as the last month having feelings for her 's brother which she hasn't told anyone, as well as waiting on a new client for work ([employer]). She stated she thinks her grandmother was prescribed a mood stabilizer but is unsure. She stated she needs to get back on track with her medication and commented "the Cymbalta and Xanax were a starting point but feels like something is missing." She stated she is not sure if the Cymbalta can be increased with the addition of a mood stabilizer. She said her mind is "constantly in a loop." She admitted to having a Gifted [employer]W since she is not 22 yet and she keeps extra rounds on her because she does not have an extra clip. She stated the rolled up dollar bill (overnight nurse noted this was found) is from a bar of [employer] and denied SA. Patient was alert and oriented. Mood was depressed with flat affect. She endorsed passive SI of feeling so depressed she just wanted to give up or be wiped from existence. She was adamant she had no plan or intent and referenced her 3 children. She denied HI. She did not appear to be responding to internal stimuli AEB fair eye contact, answering questions appropriately when addressed, staying on topic and carrying on dialogue conversation. Thought processes were linear and organized. Conversational speech was monotone. Intellectual abilities are estimated to be average. Insight, judgment and impulse control are fair AEB seeking help on her own via coming to the ED since she has not been able to get herself out of bed to her outpatient provider. Patient gave verbal consent to contact her , Charles ([phone]). He stated patient has been "distant often, in her own little world, and she seems to have lost her spark lately." He reported "it's like she is not happy much anymore." He described her moods as "content one moment and then lacking energy/ playfulness the next." He said "she gets in her own head." He stated when she gets to a breaking point she curls up and sobs. He reported he is not concerned about her harming herself as she has not given indication she would. He stated the past 2 days she has had poor sleep, specifically she has been going to bed between [phone] and sleeping until 1800. He confirmed patient has a gun, as does he and his brother. He agreed to remove all firearms from the home and car and take them to her father's in [place] where he has a locked safe. Diagnosis: 311 (F32.9) Unspecified Depressive Disorder Impression/Plan: Recommendation to hold patient overnight to start a new medication regimen and allow for to obtain all firearms from the home and car and get them to patient's father's house in [place] where they will be locked in a safe. Patient and have given verbal consent to allow 's brother, Zach Estrada, who drives a [employer] truck to come to the ED after work (between [phone]) where he will need patient's keys to get into her car and get the gun out, he will be given the ammunition patient had on her person, and he will meet patient's to clear the home and take all firearms to [place]. [facility] Security made aware of the plan for patient's brother in law to remove guns from car in ED parking lot and receive additional ammunition. If patient tolerates medication well and all firearms have been taken to her father's in [place] where they will be locked up the plan is to discharge in the morning. Consulted with Dr. Thornton regarding the management and care of patient. ED Physician in agreement with recommendations.
[2017-02-10] MEDS ORDERED: ONDANSETRON 4 MG TAB.RAPDIS PO ONE (16:35)
--- NOTE | 2017-02-10 21:02 | ER Document Report ---
Doctor's Note Notes: 02/10/17 20:59 Patient states she is feeling much better, wants to go home. Patient's spouse confirms that all firearms and ammunition have been retrieved and secured. Dr. Thornton was consulted by telephone and opines that risk of suicide has been adequately mitigated. Patient will be discharged to return home with and will follow-up as outpatient.
[2017-02-10 21:35] VITALS: BP 107/61
== END 2017-02-10 21:30 | disposition home or self-care (01) ==
LOC: ER 03:09
DX: F33.1 Major depressive disorder, recurrent, moderate (principal); F41.9 Anxiety disorder, unspecified; F17.210 Nicotine dependence, cigarettes, uncomplicated; Z79.899 Other long term (current) drug therapy
CPT/HCPCS: 93005; 99285; 36415; 80307 ×4; 84703; 85025; 80053; 81001; 93010; S0119; J3490 ×2

== ENCOUNTER 2018-06-06 18:21 | Emergency (ER) | payer MEDICAID, OTHER ==
--- NOTE | 2018-06-06 18:47 | ER Document Report ---
HPI - HPI Patient complains to provider of: Body aches, pain with intercourse Time Seen by Provider: 06/06/18 18:33 Onset: Other - Several months Onset/Duration: Persistent Quality of pain: Achy Pain Level: 4 Context: Patient presents complaining of generalized body aches that she describes as an itching and a tingling to the muscles. Patient states that she has had pain with intercourse as well. Patient reports the body aches and pain with intercourse for several months that seem to have worsened over the past few days. Patient denies any recent illness, fever, nausea or vomiting. Patient states she has seen her primary doctor about these complaints but they are taking too long to work her up to find an answer to her symptoms. Associated Symptoms: Other - Body aches, pain with intercourse. denies: Nonproductive cough, Fever, Headache, Leg swelling, Nausea, Vomiting Exacerbated by: Denies Relieved by: Denies Similar symptoms previously: No Recently seen / treated by doctor: Yes - ROS ROS below otherwise negative: Yes Systems Reviewed and Negative: Yes All other systems reviewed and negative - CONSTITUTIONAL Constitutional: DENIES: Fever, Chills - EENT EENT: DENIES: Sore Throat, Congestion - NEURO Neurology: DENIES: Headache - RESPIRATORY Respiratory: DENIES: Coughing - GASTROINTESTINAL Gastrointestinal: DENIES: Abdominal Pain, Nausea, Patient vomiting - URINARY Urinary: DENIES: Dysuria, Urgency - REPRODUCTIVE Reproductive: DENIES: : Notes: Pain with intercourse - MUSCULOSKELETAL Musculoskeletal: REPORTS: Extremity pain - Generalized body aches. 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 Lives with: Spouse/Significant other Family History: Reviewed & Not Pertinent Pulmonary Medical History: Reports: Hx Asthma, Hx Bronchitis Renal/ Medical History: Denies: Hx Peritoneal Dialysis Psychiatric Medical History: Reports: Hx Attention Deficit Hyperactivity Disorder, Hx Depression Past Surgical History: Reports: Hx Myringotomy - Immunizations Hx Diphtheria, Pertussis, Tetanus Vaccination: No Vertical Provider Document - CONSTITUTIONAL Agree With Documented VS: Yes Exam Limitations: No Limitations General Appearance: WD/WN, No Apparent Distress - INFECTION CONTROL TRAVEL OUTSIDE OF THE [place] IN LAST 30 DAYS: No - HEENT HEENT: Atraumatic, Normal ENT Exam, Normocephalic - NECK Neck: Normal Inspection, Supple. negative: Lymphadenopathy-Left, Lymphadenopathy-Right - RESPIRATORY Respiratory: Breath Sounds Normal, No Respiratory Distress, Chest Non-Tender - CARDIOVASCULAR Cardiovascular: Regular Rate, Regular Rhythm, No Murmur - GI/ABDOMEN Gastrointestinal: Abdomen Soft, Abdomen Non-Tender, No Organomegaly, Normal Bowel Sounds - REPRODUCTIVE Female Genitalia: CMT. negative: Adnexal Pain-Right, Adnexal Pain-Left Notes: white vaginal discharge, pct gaspar as standby - BACK Back: Normal Inspection. negative: CVA Tenderness-Right, CVA Tenderness-Left - MUSCULOSKELETAL/EXTREMETIES Musculoskeletal/Extremeties: MAEW, FROM, Tender - Generalized muscle tenderness to bilateral upper and lower extremities, No Edema. negative: Eccymosis - NEURO Level of Consciousness: Awake, Alert, Appropriate Motor/Sensory: No Motor Deficit - DERM Integumentary: Warm, Dry, No Rash Course - Vital Signs Vital signs: Temp Pulse Resp BP Pulse Ox 98.7 F 87 14 124/69 100 06/06/18 18:27 06/06/18 18:27 06/06/18 18:27 06/06/18 18:27 06/06/18 18:27 - Laboratory Result Diagrams: 06/06/18 19:13 06/06/18 19:13 Laboratory results interpreted by me: 06/07/18 09:11 Labs- Entire Visit 06/06/18 06/06/18 06/06/18 19:13 19:13 19:13 WBC 8.1 RBC 4.42 Hgb 12.7 Hct 36.6 MCV 83 MCH 28.8 MCHC 34.7 RDW 13.2 Plt Count 313 Seg Neutrophils % 56.4 Lymphocytes % 34.7 Monocytes % 6.3 Eosinophils % 1.5 Basophils % 1.1 Absolute Neutrophils 4.6 Absolute Lymphocytes 2.8 Absolute Monocytes 0.5 Absolute Eosinophils 0.1 Absolute Basophils 0.1 Sodium 140.1 Potassium 3.9 Chloride 103 Carbon Dioxide 29 Anion Gap 8 BUN 9 Creatinine 0.60 Est GFR ( Amer) > 60 Est GFR (Non-Af Amer) > 60 Glucose 90 Calcium 9.4 Total Bilirubin 0.4 Direct Bilirubin 0.2 Neonat Total Bilirubin Not Reportable Neonat Direct Bilirubin Not Reportable Neonat Indirect Bili Not Reportable AST 13 L ALT 19 Alkaline Phosphatase 51 Creatine Kinase 60 Total Protein 6.5 Albumin 3.9 Serum HCG, Qual NEGATIVE Urine Color Urine Appearance Urine pH Ur Specific [place] Urine Protein Urine Glucose (UA) Urine Ketones Urine Blood Urine Nitrite Urine Bilirubin Urine Urobilinogen Ur Leukocyte Esterase Urine WBC (Auto) Urine RBC (Auto) U Hyaline Cast (Auto) Squamous Epi Cells Auto Urine Mucus (Auto) Urine Ascorbic Acid Epi Cells (Wet Prep) Bacteria (Wet Prep) Trichomonas (Wet Prep) Vaginal WBC Vaginal RBC Vaginal Yeast Chlamydia DNA (PCR) N.gonorrhoeae DNA (PCR) 06/06/18 06/06/18 06/06/18 19:13 19:22 19:22 WBC RBC Hgb Hct MCV MCH MCHC RDW Plt Count Seg Neutrophils % Lymphocytes % Monocytes % Eosinophils % Basophils % Absolute Neutrophils Absolute Lymphocytes Absolute Monocytes Absolute Eosinophils Absolute Basophils Sodium Potassium Chloride Carbon Dioxide Anion Gap BUN Creatinine Est GFR ( Amer) Est GFR (Non-Af Amer) Glucose Calcium Total Bilirubin Direct Bilirubin Neonat Total Bilirubin Neonat Direct Bilirubin Neonat Indirect Bili AST ALT Alkaline Phosphatase Creatine Kinase Total Protein Albumin Serum HCG, Qual Urine Color YELLOW Urine Appearance CLOUDY Urine pH 6.0 Ur Specific [place] 1.016 Urine Protein NEGATIVE Urine Glucose (UA) NEGATIVE Urine Ketones NEGATIVE Urine Blood SMALL H Urine Nitrite POSITIVE H Urine Bilirubin NEGATIVE Urine Urobilinogen NEGATIVE Ur Leukocyte Esterase NEGATIVE Urine WBC (Auto) 6 Urine RBC (Auto) 2 U Hyaline Cast (Auto) 1 Squamous Epi Cells Auto 13 Urine Mucus (Auto) RARE Urine Ascorbic Acid NEGATIVE Epi Cells (Wet Prep) 4+ EPITHELIALS SEEN Bacteria (Wet Prep) 4+ BACTERIA SEEN Trichomonas (Wet Prep) Not Reportable Vaginal WBC RARE WBCS SEEN Vaginal RBC RARE RBCS SEEN Vaginal Yeast Not Reportable Chlamydia DNA (PCR) NOT DETECTED N.gonorrhoeae DNA (PCR) NOT DETECTED Discharge - Discharge Clinical Impression: PID (acute pelvic inflammatory disease), Myalgia UTI (urinary tract infection) Qualifiers: Urinary tract infection type: site unspecified Hematuria presence: with hematuria Qualified Code(s): N39.0 - Urinary tract infection, site not specified Condition: Stable Disposition: HOME, SELF-CARE Instructions: Cephalexin ([facility]), Myalagia (Muscle Pain) ([facility]), Pelvic Inflammatory Disease ([facility]), Rocephin ([facility]), Urinary Anesthetic Agent ([facility]), Urinary Tract Infection ([facility]) Additional Instructions: Return immediately for any new or worsening symptoms Followup with your primary care provider, call tomorrow to make a followup appointment Prescriptions: RX: Doxycycline Hyclate 100 mg PO BID #28 capsule Metronidazole [Flagyl 500 mg Tablet] 500 mg PO BID #28 tablet Naproxen [Naprosyn 250 Nmg Tablet] 1 tab PO BID #14 tablet Phenazopyridine HCl [Pyridium 200 mg Tablet] 200 mg PO TID #15 tablet Forms: Return to Work Referrals: POLA NORTH DO [NO LOCAL MD] - Follow up as needed
[2018-06-06] MEDS ORDERED: ACETAMINOPHEN 325 MG TABLET PO ONE (18:48)
[2018-06-06 19:27] LABS: ABSOLUTE BASOPHILS # (AUTO) 0.1 10^3/uL (0.0-0.2); ABSOLUTE EOSINOPHILS # (AUTO) 0.1 10^3/uL (0.0-0.6); ABSOLUTE LYMPHOCYTES (AUTO) 2.8 10^3/uL (0.5-4.7); ABSOLUTE MONOCYTES (AUTO) 0.5 10^3/uL (0.1-1.4); ABSOLUTE NEUT (AUTO) 4.6 10^3/uL (1.7-8.2); BASOPHILS % (AUTO) 1.1 % (0-2); EOSINOPHILS % (AUTO) 1.5 % (0-6); HEMATOCRIT 36.6 % (36.0-47.0); HEMOGLOBIN 12.7 g/dL (12.0-15.5); LYMPHOCYTES % (AUTO) 34.7 % (13-45); MEAN CORPUSCULAR HEMOGLOBIN 28.8 pg (27.0-33.4); MEAN CORPUSCULAR HGB CONC 34.7 g/dL (32.0-36.0); MEAN CORPUSCULAR VOLUME 83 fl (80-97); MONOCYTES % (AUTO) 6.3 % (3-13); PLATELET COUNT 313 10^3/uL (150-450); RED BLOOD COUNT 4.42 10^6/uL (3.72-5.28); RED CELL DISTRIBUTION WIDTH 13.2 % (11.5-14.0); SEGMENTED NEUTROPHILS % (AUTO) 56.4 % (42-78); TOTAL CELLS COUNTED % (AUTO) 100 %; WHITE BLOOD COUNT 8.1 10^3/uL (4.0-10.5)
[2018-06-06 19:34] LABS: BACTERIA (WET MOUNT) 4+ BACTERIA SEEN; EPITHELIALS (WET MOUNT) 4+ EPITHELIALS SEEN; RBCS (WET MOUNT) RARE RBCS SEEN; WBCS (WET MOUNT) RARE WBCS SEEN
[2018-06-06 19:35] LABS: APPEARANCE,URINE CLOUDY; BILIRUBIN,URINE NEGATIVE (NEGATIVE); COLOR,URINE YELLOW; GLUCOSE, URINE NEGATIVE (NEGATIVE); KETONES,URINE NEGATIVE (NEGATIVE); LEUKOCYTE ESTERASE,URINE NEGATIVE (NEGATIVE); NITRITE,URINE POSITIVE (NEGATIVE); PROTEIN,URINE NEGATIVE (NEGATIVE); URINE SPECIFIC GRAVITY 1.016; UROBILINOGEN,URINE NEGATIVE mg/dL (<2.0)
[2018-06-06] MEDS ORDERED: LIDOCAINE 1% INJ-PF (10 MG/ML) 30 ML SDV INJ ONE (19:37)
[2018-06-06] MEDS ORDERED: CEFTRIAXONE INJ 1000 MG VIAL IM ONE (19:37)
[2018-06-06 19:41] LABS: ALANINE AMINOTRANSFERASE 19 U/L (9-52); ALBUMIN 3.9 g/dL (3.5-5.0); ALKALINE PHOSPHATASE 51 U/L (38-126); ANION GAP 8 (5-19); ASPARTATE AMINO TRANSFERASE 13 U/L (14-36); BILIRUBIN,DIRECT 0.2 mg/dL (0.0-0.4); BILIRUBIN,TOTAL 0.4 mg/dL (0.2-1.3); BLOOD UREA NITROGEN 9 mg/dL (7-20); CALCIUM 9.4 mg/dL (8.4-10.2); CARBON DIOXIDE 29 mmol/L (22-30); CHLORIDE 103 mmol/L (98-107); CREATINE KINASE 60 U/L (30-135); GLUCOSE 90 mg/dL (75-110); POTASSIUM 3.9 mmol/L (3.6-5.0); SODIUM 140.1 mmol/L (137-145); TOTAL PROTEIN 6.5 g/dL (6.3-8.2)
[2018-06-06 20:54] VITALS: BP 109/65
[2018-06-06 21:00] LABS: CHLAM PCR NOT DETECTED (NOT DETECT); GON PCR NOT DETECTED (NOT DETECT)
== END 2018-06-06 21:04 | disposition home or self-care (01) ==
LOC: ER 18:21
DX: N73.0 Acute parametritis and pelvic cellulitis (principal); N39.0 Urinary tract infection, site not specified; M79.10 Myalgia, unspecified site; N94.10 Unspecified dyspareunia
CPT/HCPCS: 99283; 96372; 36415; 87086; 87210; 82550; 84703; 85025; 87088; 80053; 81001; 87186; 87491; 87591; J3490 ×2; J0696